=== PATIENT | male | born 1940 | race Caucasian/White ===

== ENCOUNTER 2018-03-15 16:20 | Emergency (ER) | payer MEDICARE, OTHER ==
[2018-03-15] MEDS: HYDROCODONE/APAP (5/325) TAB PO (19:04)
== END 2018-03-15 20:26 | disposition home or self-care (01) ==
LOC: FTE 16:20
DX: S60.221A Contusion of right hand, initial encounter (principal); S30.0XXA Contusion of lower back and pelvis, initial encounter; S20.212A Contusion of left front wall of thorax, initial encounter; V49.50XA Passenger injured in collision with unspecified motor vehicles in traffic accident, initial encounter
CPT/HCPCS: 71046; 72100; 73130-RT; 99284-25